=== PATIENT | female | born 1945 | race Hispanic/Latino ===

== ENCOUNTER 2018-08-09 13:33 | Outpatient (CLI) | payer MEDICARE ==
[~2018-08-09 13:33] MED LIST: Iopamidol 370 76% 100 ML VIAL ONE
--- NOTE | 2018-08-09 15:23 | CT ---
CONTRAST ENHANCED CT IMAGES OF THE ABDOMEN AND PELVIS: HISTORY: Epigastric pain or 10.13. FINDINGS: Contrast-enhanced CT images of the abdomen and pelvis obtained after administration of IV and oral co ntrast. Lung bases are unremarkable. No evidence of free intraperitoneal air is seen. The liver, spleen, and pancreas are unremarkable. The gallbladder has been surgically removed. Adre nal glands and kidneys are unremarkable. No dilated loops of small bowel seen. A normal appendix is seen. There is extensive thickening involving the transverse colon, splenic flexure, and descending colon a s well as portions of the sigmoid colon. This is concerning for colitis. Correlate with direct visualization. The pelvis is otherwise unremarkable. Extensive colonic thickening concerning for colitis. There is an area of sclerotic density involving the left T12-L1 neural foramen extending into the giselle tral spinal canal. This may represent possible calcified meningioma or other sclerotic calcified bon y lesions. Correlation with pre- and postcontrast-enhanced MRI images of the lumbar spine as well as neurosurgical consultation is recommended. POS: RANULFO
== END 2018-08-09 13:34 | disposition home or self-care (01) ==
LOC: CT 13:33
PROVIDERS: ATTEND Internal Medicine Gastroenterology
DX: R10.13 Epigastric pain (principal)
CPT/HCPCS: 74177; 82565

== ENCOUNTER 2019-05-28 08:50 | Outpatient (CLI) | payer MEDICARE ==
--- NOTE | 2019-05-28 11:55 | ULT ---
BILATERAL RENAL ULTRASOUND: Date: 05/28/19 HISTORY: Chronic renal disease, hypertension. FINDINGS: The right kidney measures 10.7 cm in length and the left kidney measures 10.0 cm in length. No focal mass or hydronephrosis is seen on either side. The cortical echogenicity and thickness is normal. The urinary bladder is grossly unremarkable. The peak systolic velocity in the right renal artery measures 156 cm/second and in the left renal art nikki measures 199 cm/second, with a renal artery to aortic ratios of 2.29 and 2.93, respectively. Resi stive indices of 0.8 on the right and 0.7 on the left. IMPRESSION: No significant abnormalities are seen. POS: CM
== END 2019-05-28 08:51 | disposition home or self-care (01) ==
LOC: BICULT 08:50
PROVIDERS: ATTEND Internal Medicine Nephrology
DX: I12.9 Hypertensive chronic kidney disease with stage 1 through stage 4 chronic kidney disease, or unspecified chronic kidney disease (principal); N18.3 Chronic kidney disease, stage 3 (moderate)
CPT/HCPCS: 76700; 76770

== ENCOUNTER 2021-10-18 16:34 | Emergency (ER) | payer MEDICARE ==
[~2021-10-18 16:34] MED LIST changes: -Iopamidol 370 76% 100 ML VIAL ONE; +Iopamidol-370 76% 500 ML 1 ML ONE
[2021-10-18 17:06] LABS: #Basophils 0.1 thou/uL (0.0-0.2); #Lymphocytes 1.9 thou/uL (1.20-3.40); #Monocytes 0.7 thou/uL (0.11-0.59); #Neutrophils 4.9 thou/uL (1.40-6.50); %Basophils 0.9 % (0.0-1.0); %Eosinophils 0.6 % (0.0-10.0); %Lymphocytes 25.2 % (21.0-51.0); %Monocytes 8.5 % (0.0-10.0); %Neutrophils 64.8 % (42.0-75.0); Hemoglobin 12.2 g/dL (12.0-16.0); Mean Corpuscular HGB CONC 34.3 g/dL (32.0-36.0); Mean Corpuscular Hemoglobin 31.8 pg (27.0-31.0); Mean Corpuscular Volume 92.6 fL (78.0-98.0); Platelet Count 359 thou/uL (130-400); RBC Distribution Width 11.4 % (11.5-14.5); Red Blood Cell (RBC) Count 3.85 mill/uL (4.20-5.40); White Blood Cell (WBC) Count 7.6 thou/uL (4.8-10.8)
[2021-10-18 17:42] LABS: ALT (SGPT) 14 U/L (8-55); AST (SGOT) 14 U/L (5-34); Albumin 4.1 g/dL (3.4-4.8); Alkaline Phosphatase 69 U/L (40-110); Anion Gap 13 mmol/L (10-20); BUN (Urea Nitrogen) 16 mg/dL (9.8-20.1); Bilirubin, Total 0.6 mg/dL (0.2-1.2); Calc. Creatinine Clearance 0 mL/min (70-130); Calcium 9.9 mg/dL (7.8-10.44); Carbon Dioxide 24 mmol/L (23-31); Chloride 103 mmol/L (98-107); Globulin 3.3 g/dL (2.4-3.5); Glucose 199 mg/dL (83-110); Potassium 3.9 mmol/L (3.5-5.1); Protein, Total 7.4 g/dL (5.8-8.1); Sodium 136 mmol/L (136-145)
[2021-10-18 19:11] LABS: Bilirubin Negative (Negative); Blood, Urine Negative (Negative); Clarity Clear (Clear); Glucose, Urine (Dipstick) 100 mg/dL (Negative); Ketone, Urine Negative (Negative); Leukocyte Negative Leu/uL (Negative); Nitrite Negative (Negative); Protein, Urine (Dipstick) Negative (Neg-Trace); Specific Gravity, Urine 1.013 (1.002-1.036); Urobilinogen Normal mg/dL (Less than 2)
[2021-10-18] MEDS ORDERED: Morphine 4 MG/ML VIAL ONE ×2 (19:59→22:06)
== END 2021-10-18 23:07 | disposition home or self-care (01) ==
LOC: ERS 16:34
DX: R10.32 Left lower quadrant pain (principal); I10 Essential (primary) hypertension; E78.5 Hyperlipidemia, unspecified; E11.9 Type 2 diabetes mellitus without complications
CPT/HCPCS: 36415; 74177; 80053; 81003; 83605; 83690; 85025; 96374; 96376; J2270; Q9967

== ENCOUNTER 2022-11-15 12:25 | Outpatient (CLI) | payer OTHER, MEDICAID ==
[~2022-11-15 12:25] MED LIST changes: -Iopamidol-370 76% 500 ML 1 ML ONE; +Magnevist 469MG/ML 20 ML VIAL ONE
== END 2022-11-15 12:26 | disposition home or self-care (01) ==
LOC: MRI 12:25
PROVIDERS: ATTEND Family Medicine
DX: R41.3 Other amnesia (principal)
CPT/HCPCS: 70553; A9579